=== PATIENT | female | born 1960 | race Hispanic/Latino ===

== ENCOUNTER → 2019-10-26 | Outpatient (CLI) | payer OTHER ==
[~2019-10-26] MED LIST: CRESTOR20 MG PO; IOPAMIDOL 370 MG/ML 200 ML INFUS..BTL INJ ONE; LEVOCETIRIZINE D5 MG; LISINOPRIL10 MG PO; MACROBID 100 M100 MG PO; PANTOPRAZOLE SO40 MG PO; REGLAN10 MG PO; TRIDERM28.4 GM; Z.0.ATORVASTATIN CA1 PO; Z.0.PROTONIX40 MG PO; Z.2.LISINOPRIL-HCT1 PO
[2019-10-26 16:25] LABS: BLOOD UREA NITROGEN 11 mg/dL (7-26); BUN/CREATININE RATIO 12 (6-25); EST GLOMERULAR FILTRATION RATE > 60 ML/MIN (60-)
--- NOTE | 2019-10-26 18:06 | Diagnostic Imaging Report ---
CT chest with enhancement CPT code: 29773 INDICATION: Left shoulder and upper chest pain, abnormal outside chest x-ray ("cavitation looking type of lesion on chest x-ray in the left upper lobe") TECHNIQUE: 5 mm collimation axial images obtained from the thoracic inlet to the level of the diaphragm following uneventful administration of 80 cc of low osmolar, nonionic intravenous contrast. RADIATION DOSE: Total DLP: 638.23 mGy*cm Estimated effective dose: (DLP x 0.015 x size factor) mSv CTDIvol has been reviewed. It is below the limits set by the Radiation Protocol Committee (RPC). Dose reduction techniques used: Automated exposure control, adjustment of the mAs and/or kVp according to patient size, standardized low-dose protocol, and/or iterative reconstruction technique. Comparison: No relevant priors at this institution for comparison. CHEST FINDINGS: Lymph nodes: Right axillary lymph nodes measure up to 8 mm. Left axillary lymph nodes measure up to 10 mm. No enlarged supraclavicular, mediastinal, or hilar lymph nodes. Thyroid: Visualized portions are normal. Mediastinum: No pericardial effusion. Heart and great vessels enhance normally without filling defects. The ascending aorta measures 3.4 cm. The main pulmonary artery measures 3.4 cm. The esophagus is normal. Lungs: Right Lung: Minimal apical pleural-parenchymal thickening. No infiltrate or mass. Left Lung: Minimal apical pleural parenchymal thickening. No infiltrate, mass, or cavitation. Subsegmental atelectasis in the lingula. Pleura: Mild eventration of the right diaphragm. No evidence of pleural effusion or pleural-based mass ABDOMEN: The gallbladder is absent. Uniformly enhancing lesion in the posterior aspect of the right lobe measures 1.3 cm. Visualized portions of the pancreas, spleen, adrenal glands, and kidneys are unremarkable. Bones: Degenerative changes of the spine. The visualized portions of the shoulders appear normal. No focal osseous lesions. IMPRESSION: 1. Mildly prominent and nonspecific left axillary lymph nodes. Please correlate with history of infection/inflammation. 2. No abnormalities of the lungs to explain findings on outside chest x-ray. 3. 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 4. Hypervascular liver lesion is too small to characterize. Consider further evaluation with CT or MRI dedicated to the liver. 5. Status post cholecystectomy. A call report request to [phone] could not be completed due to unsecured voicemail. Signed by: Dr. Lamonte Cummins MD on 10/26/2019 6:02 PM
== END ==
LOC: CT 15:05
PROVIDERS: ATTEND Family Medicine
DX: R93.89 Abnormal findings on diagnostic imaging of other specified body structures (principal); R91.8 Other nonspecific abnormal finding of lung field
CPT/HCPCS: 36415; 71260; 82565; 84520; Q9967

== ENCOUNTER → 2019-11-17 | Outpatient (CLI) | payer OTHER ==
[~2019-11-17] MED LIST changes: +GADOBENATE DIMEGLUMINE 1 ML IV ONE; -IOPAMIDOL 370 MG/ML 200 ML INFUS..BTL INJ ONE; +SODIUM CHLORIDE 0.9% 100 ML ONE
--- NOTE | 2019-11-17 13:16 | Diagnostic Imaging Report ---
MRI abdomen without and with contrast History: Liver lesion Comparison: CT chest 10/26/2019 Technique: Multiplanar and multisequence MRI images of the abdomen were obtained without and subsequently following the administration of intravenous gadolinium. Findings: The heart is normal in size. No pleural effusion or pericardial effusion is identified. The hepatic contour appears unremarkable. There is mild diffuse signal loss of the liver between T1 in and out of phase imaging. The central portal and hepatic veins appear patent. No intrahepatic biliary dilation is seen. Within segment 6 of the liver, a 10 mm T2 hyperintense rounded lesion is noted. This lesion demonstrates early arterial phase enhancement, with progressive central enhancement. This lesion appears isointense to the background liver on the delayed phase. Imaging characteristics are most suggestive of a small hemangioma. Liver is otherwise unremarkable. The gallbladder appears absent. Unremarkable appearance of the pancreas, spleen, adrenal glands, and kidneys. The bowel loops appear normal in caliber. No definite bowel wall thickening is identified. No free fluid or lymphadenopathy is identified within the abdomen. No focal bony lesion or abnormal bony enhancement is identified. Impression: 10 mm lesion within segment 6 of the liver is most suggestive of a hemangioma. No further follow-up imaging is necessary. Diffuse fatty infiltration of the liver. Signed by: Andrew Jansen MD on 11/17/2019 1:13 PM
== END ==
LOC: MRI 10:28
PROVIDERS: ATTEND Family Medicine
DX: K76.9 Liver disease, unspecified (principal)
CPT/HCPCS: 74183; A9577; J7050